=== PATIENT | female | born 2000 | race Caucasian/White ===

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

== ENCOUNTER 2020-01-22 16:33 | Emergency (ER) | payer OTHER, SELFPAY ==
[2020-01-22 16:42] VITALS: BP 110/72; PULSE 75; RESP 16; TEMP 37.1; O2SAT 99; BMI 23.8
[2020-01-22] MEDS: DEXAMETHASONE 10 MG/ML VIAL PO (18:01)
[2020-01-22 18:07] VITALS: BP 96/66; PULSE 73; RESP 18; O2SAT 18
--- NOTE | 2020-01-22 18:11 | ED.URI ---
HPI - URI/Sore Throat <DIGNA Rowley - Last Filed: 01/22/20 20:07> General Chief Complaint: Upper Respiratory Symptoms Stated Complaint: chills, sweats,sore throat, headache Time Seen by Provider: 01/22/20 17:17 Source: patient and family Mode of arrival: Ambulatory History of Present Illness HPI Narrative: 19yo female presents emergency department with her mother for a sore throat, headache, and sores in her throat for the past 3 days. Patient states she was around her sister who was recently treated for strep throat. Patient denies any other symptoms such as cough, shortness of breath, rhinorrhea, chest pain, dizziness, nausea, vomiting, diarrhea, or any other concerns. Related Data Home Medications Medication Instructions Recorded Confirmed cetirizine [Zyrtec] 10 mg PO DAILY 06/05/18 06/05/18 ibuprofen 1 dose PO PRN PRN 06/05/18 06/05/18 Previous Rx's Medication Instructions Recorded dextromethorphan-guaifenesin 1 tab PO BID PRN #20 tab 04/22/19 [Mucinex DM] fluticasone propionate [Flonase 1 spray NASAL BID PRN #15.8 ml 04/22/19 Allergy Relief] doxycycline hyclate 100 mg PO BID #20 tab 04/27/19 Allergies Allergy/AdvReac Type Severity Reaction Status Date / Time No Known Drug Allergies Allergy Verified 01/22/20 16:45 Review of Systems <DIGNA Rowley - Last Filed: 01/22/20 20:07> Review of Systems Narrative: REVIEW OF SYSTEMS: GENERAL: Denies fevers. HENT: No head trauma. Reports sore throat, see HPI. CARDIOVASCULAR: No chest pain or syncope. RESPIRATORY: No shortness of breath. No cough. GASTROINTESTINAL: No nausea, vomiting, diarrhea, or constipation. INTEGUMENTARY: No rash. Patient History <DIGNA Rowley - Last Filed: 01/22/20 20:07> Medical History Healthy child No pertinent family history Surgical History No pertinent past surgical history Social History Smoking Status: Never smoker Smoking Status: Never smoker Substance Use Type: does not use Exam <DIGNA Rowley - Last Filed: 01/22/20 20:07> Initial Vital Signs Initial Vital Signs: Vital Signs Temperature 98.8 F 01/22/20 16:42 Pulse Rate 75 01/22/20 16:42 Respiratory Rate 16 01/22/20 16:42 Blood Pressure 110/72 01/22/20 16:42 Pulse Oximetry 99 01/22/20 16:42 PHYSICAL EXAMINATION: GENERAL: Well groomed, alert, and cooperative. Answers questions promptly and appropriately. HENT: Normocephalic, atraumatic. Oropharynx with erythema, tonsils 1+ and equal bilaterally. Aphthous ulcers noted undo come mucosa. EYES: Conjunctiva pink, sclera white, no periorbital swelling. No discharge. RESPIRATORY: Normal respiratory rate, trachea midline, airway patent. No stridor, nasal flaring or accessory muscle use. MUSCULOSKELETAL: Normal gait and coordination. Equal tone and mass bilaterally. EXTREMITIES: Moves all extremities. SKIN: Warm, dry, soft, appropriate color for ethnicity. No lesions, rashes, or wounds to visualized areas. NEURO: Alert and Oriented X 3. Good coordination. No ataxia or cognitive issues. PSYCH: Appropriate affect and mood. <Jason Ramirez MD - Last Filed: 01/23/20 18:43> Initial Vital Signs Initial Vital Signs: Vital Signs Temperature 98.8 F 01/22/20 16:42 Pulse Rate 75 01/22/20 16:42 Respiratory Rate 16 01/22/20 16:42 Blood Pressure 110/72 01/22/20 16:42 Pulse Oximetry 99 01/22/20 16:42 Course <DIGNA Rowley - Last Filed: 01/22/20 20:07> Orders Ordered: Discontinued Medications Dexamethasone (Dexamethasone 10 Mg/Ml Vial) 10 mg PO NOW ONE Stop: 01/22/20 17:41 Last Admin: 01/22/20 18:01 Dose: 10 mg Documented by: FILOMENA Vital Signs Vital signs: Vital Signs - 8 hr 01/22/20 16:42 01/22/20 18:07 Temperature 98.8 F Pulse Rate 75 73 Respiratory Rate 16 18 Blood Pressure 110/72 96/66 Pulse Oximetry 99 18 L <Jason Ramirez MD - Last Filed: 01/23/20 18:43> Orders Ordered: Discontinued Medications Dexamethasone (Dexamethasone 10 Mg/Ml Vial) 10 mg PO NOW ONE Stop: 01/22/20 17:41 Last Admin: 01/22/20 18:01 Dose: 10 mg Documented by: FILOMENA Vital Signs Vital signs: Vital Signs - 8 hr 01/22/20 16:42 01/22/20 18:07 Temperature 98.8 F Pulse Rate 75 73 Respiratory Rate 16 18 Blood Pressure 110/72 96/66 Pulse Oximetry 99 18 L MDM - URI/Sore Throat <DIGNA Rowley - Last Filed: 01/22/20 20:07> Medical Records Attestation: I reviewed the patient's medical records. Lab Data Attestation: I reviewed the patient's lab results. Labs: Point of Care Testing Rapid Strep A Negative MDM Narrative Medical decision making narrative: History and examination concerning for pharyngitis. Increased suspicion for viral versus bacterial etiology given negative POC strep test. However, culture was sent to lab as patient was recently exposed to strep. She was given a dose of dexamethasone to help with throat pain and aphthous ulcers. She was encouraged to drink plenty of fluids and take ibuprofen as needed for pain. Return precautions given for new or worsening symptoms. Patient agreed to plan of care and verbalized understanding. <Jason Ramirez MD - Last Filed: 01/23/20 18:43> Lab Data Labs: Point of Care Testing Rapid Strep A Negative Discharge Plan Departure Patient Disposition: Home Clinical Impression: Aphthous ulcer Pharyngitis Qualifiers: Pharyngitis/tonsillitis etiology: unspecified etiology Qualified Code(s): J02.9 - Acute pharyngitis, unspecified Instructions: DI for Pharyngitis/Tonsillopharyngitis -- Adult Activity Restrictions/Additional Instructions: Thank you for entrusting me with your care today. As discussed, your strep A test is negative. We have sent a culture to the lab for further testing and will contact you if it is positive in approximately 2 days. I have given you a dose of dexamethasone to help with the pain and the canker sores, this lasts for approximately 3 days. Follow-up with your primary care provider in 1-2 weeks for further evaluation if symptoms continue. Return emergency department for any new or worsening symptoms. Prescriptions: No Action cetirizine [Zyrtec] 10 mg Tablet 10 mg PO DAILY RF: 0 ibuprofen 200 mg Tablet 1 dose PO PRN PRN (Reason: pain) RF: 0 doxycycline hyclate 100 mg tablet 100 mg PO BID Qty: 20 RF: 0 fluticasone propionate [Flonase Allergy Relief] 50 mcg/actuation spray,suspension 1 spray NASAL BID PRN (Reason: nasal congestion) Qty: 15.8 RF: 0 dextromethorphan-guaifenesin [Mucinex DM] 60-1,200 mg tablet extended release 12 hr 1 tab PO BID PRN (Reason: cold symptoms) Qty: 20 RF: 0
== END 2020-01-22 18:08 | disposition home or self-care (01) ==
PROVIDERS: Emergency Provider Nurse Practitioner
DX: K12.0 Recurrent oral aphthae (principal); J02.9 Acute pharyngitis, unspecified; R51.9 Headache, unspecified
CPT/HCPCS: 87070; 87880; 99281; 99283; J1100

== ENCOUNTER 2020-01-24 12:08 | Emergency (ER) | payer OTHER, SELFPAY ==
--- NOTE | 2020-01-24 12:12 | ED.URI ---
HPI - URI/Sore Throat <DIGNA Ansari - Last Filed: 01/24/20 13:57> General Chief Complaint: Fever Stated Complaint: cant eat/ no sleep/ possible yeast/ blisters in mo Time Seen by Provider: 01/24/20 12:11 Source: patient Mode of arrival: Ambulatory Limitations: no limitations History of Present Illness HPI Narrative: This is a 19-year-old female, smoker, who has past medical history significant for pneumonia presents to ED with chief complain of worsening sore throat and oral lesions in the inner lip, tongue and white patch on posterior throat with teeth sensitivity. Patient reports some chills but denies fever. Reports pain is pretty constant and rates as 8/10. Mother and patient reports decreased oral intake but has been able to tolerate liquids. Patient denies changes in her voice. Denies difficulty managing own oral secretions. Denies dyspnea, chest pain, abdominal pain, back pain. Patient also reports dysuria and burning sensation with urination. She denies lesions in perineum. She is sexually active but denies concerns for STIs and unusual vaginal discharge. LMP 1 week ago which was normal in character. She denies using IV drugs but smokes marijuana. Related Data Home Medications Medication Instructions Recorded Confirmed cetirizine [Zyrtec] 10 mg PO DAILY 06/05/18 06/05/18 ibuprofen 1 dose PO PRN PRN 06/05/18 06/05/18 Previous Rx's Medication Instructions Recorded dextromethorphan-guaifenesin 1 tab PO BID PRN #20 tab 04/22/19 [Mucinex DM] fluticasone propionate [Flonase 1 spray NASAL BID PRN #15.8 ml 04/22/19 Allergy Relief] doxycycline hyclate 100 mg PO BID #20 tab 04/27/19 cephalexin [Keflex] 500 mg PO BID 5 Days #10 cap 01/24/20 triamcinolone acetonide 1 applic MUCOUS MEMBRANE TID PRN 01/24/20 #5 g Allergies Allergy/AdvReac Type Severity Reaction Status Date / Time No Known Drug Allergies Allergy Verified 01/22/20 16:45 Review of Systems <DIGNA Ansari - Last Filed: 01/24/20 13:57> Review of Systems Narrative: General: Denies fever, (+) chills, fatigue, malaise, sweats. HEENT: See HPI Respiratory: Denies dyspnea, cough, wheezing, hemoptysis, sputum. Cardiovascular: Denies chest pain, palpitations, orthopnea, edema. Gastrointestinal: Denies nausea, vomiting, abdominal pain, diarrhea, constipation, melena. : See HPI Musculoskeletal: Denies weakness, joint pain or bony pain. Skin: Denies rash, skin lesions, or other. Neurologic: Denies weakness, headache, numbness, change in speech, confusion, seizures, incoordination. Psychiatric: No concerning psychosocial issues. 12-point review of systems is negative except for those stated above. Patient History <DIGNA Ansari - Last Filed: 01/24/20 13:57> Medical History (Updated 01/24/20 @ 13:27 by DIGNA Ansari) Healthy child No pertinent family history Surgical History No pertinent past surgical history Social History Smoking Status: Never smoker <Blessing Becerril MD - Last Filed: 01/24/20 18:01> Smoking Status: Never smoker Substance Use Type: does not use Exam <DIGNA Ansari - Last Filed: 01/24/20 13:57> Narrative Exam Narrative: GEN: Alert, oriented x 3, well appearing and nourished, and in no acute distress. Head: Normal cephalic, atraumatic. No scalp or temporal tenderness, palpable mass or rash. EYES: Pupils are equal, round, and reactive to light and accommodation. Extraocular muscles are intact bilaterally. There is no subconjunctival hemorrhage, exudate and sclera non-icteric. ENT: Bilateral auditory canals and tympanic membranes clear. Hearing grossly intact. Nose without bleeding, purulent discharge or deviation. Facial sinuses nontender to palpate. Mucous membrane moist a few small less than 0.5 cm mucosal lesions on the tip of tongue, inner frontal nuchal membrane. Throat mild erythema with mild tonsillar hypertrophy without obvious section date. Uvula in midline, airway patent. Neck: Trachea in midline. No JVD, non-tender without lymphadenopathy. No masses or thyroid megaly. Supple, non-tender and no meningeal signs. CARDIAC: Normal regular rate and rhythm without murmurs, gallops, or rubs. No chest wall tenderness. No peripheral edema, cyanosis or pallor. Capillary refill is less than 2 seconds. RESPIRATORY: Lungs are clear to auscultate bilaterally. No cough, wheezes, rales, or rhonchi. No stridor, respiratory distress, increase work of breathing, or accessary muscle used. ABD: Abdomen soft, nontender and non-distended. No guarding or rebound tenderness to palpate. Bowel sounds are normal in all 4 quadrants. There is no palpable masses or organomegaly. EXT: Full painless ROM of all extremities with no loss of sensation, strength, effusion or edema. SKIN: Warm, dry, normal color for patient. No erythema, lesions or rash over visible areas. BACK: Nontender without deformity or crepitance. No flank tenderness. NEUROLOGICAL: Alert and oriented to place, time and person. Sensation and motor function intact bilaterally. No facial droops, dysphasia. PSYCHIATRIC: Good judgement and reason, without hallucinations, abnormal affect or abnormal behaviors during the examination. Patient is not suicidal. Initial Vital Signs Initial Vital Signs: Vital Signs Temperature 99 F 01/24/20 12:16 Pulse Rate 93 H 01/24/20 12:16 Respiratory Rate 18 01/24/20 12:16 Blood Pressure 113/70 01/24/20 12:16 Pulse Oximetry 96 01/24/20 12:16 General: No CVA tenderness External Female Exam: normal appearance of the urethra, externally tender on the left (Labia majora), no external swelling, lesion (two small ulcerated lesion), no lacerations, no ecchymosis, No urethral discharge and No bartholin cyst Speculum Exam - Vagina: normal appearance of the vagina, abnormal vaginal discharge white, not erythematous, no lesions, No vaginal bleeding, no masses and nontender Speculum Exam - Cervix: normal appearance of the cervix Bimanual Exam- Vagina & Uterus: normal bimanual exam Bimanual Exam- Adnexa, other: no masses OB/External & Speculum: No vaginal bleeding Other: Patient requested have mother at bedside and decline additional stand by assistance/regulatory manager. Vaginal cultures obtained <Belssing Becerril MD - Last Filed: 01/24/20 18:01> Initial Vital Signs Initial Vital Signs: Vital Signs Temperature 99 F 01/24/20 12:16 Pulse Rate 93 H 01/24/20 12:16 Respiratory Rate 18 01/24/20 12:16 Blood Pressure 113/70 01/24/20 12:16 Pulse Oximetry 96 01/24/20 12:16 Scores <[facility] - Last Filed: 01/24/20 13:57> GCS Dominique coma scale eye opening: Spontaneous [place] coma scale verbal response: Orientated [place] coma scale motor response: Obey commands Dominique coma scale total score: 15 Course <[facility] - Last Filed: 01/24/20 13:57> Orders Ordered: ED Orders 01/24/20 12:35 Miscellaneous to [facility] Stat Urine Culture Stat Urine Microscopic Stat 01/24/20 13:00 Genital Culture Stat HSV Culture Typing Stat Wet Prep Tric BV Becky Stat Vital Signs Vital signs: Vital Signs - 8 hr 01/24/20 12:16 01/24/20 13:32 Temperature 99 F Pulse Rate 93 H 78 Respiratory Rate 18 14 Blood Pressure 113/70 111/72 Pulse Oximetry 96 98 <Blessing Becerril MD - Last Filed: 01/24/20 18:01> Orders Ordered: ED Orders 01/24/20 12:35 Miscellaneous to [facility] Stat Urine Culture Stat Urine Microscopic Stat 01/24/20 13:00 Genital Culture Stat HSV Culture Typing Stat Wet Prep Tric BV Becky Stat Vital Signs Vital signs: Vital Signs - 8 hr 01/24/20 12:16 01/24/20 13:32 Temperature 99 F Pulse Rate 93 H 78 Respiratory Rate 18 14 Blood Pressure 113/70 111/72 Pulse Oximetry 96 98 MDM - URI/Sore Throat <[facility] - Last Filed: 01/24/20 13:57> Differential Diagnosis Differential diagnosis: Likely pharyngitis and other (Aphthous ulcers, vaginal ulcers, UTI, PID, vaginal infection/STI) Medical Records Attestation: I reviewed the patient's medical records. Lab Data Attestation: I reviewed the patient's lab results. Labs: Lab Results 01/24/20 Range/Units 12:35 Urine RBC 1-5/hpf (0-5/HPF) Urine WBC 10-30/hpf H (0-5/HPF) Ur Squamous Epith Cells 1-5 /hpf (0-5/HPF) Urine Bacteria Moderate (10-30) H (None) Ur Culture Indicated? Specimen cultured Point of Care Testing Test Results Negative Urine Dip Bedside Urine Glucose Negative Bedside Urine Bilirubin - Negative Bedside Urine Ketone + 15 Urine Specific [place] 1.020 Bedside Urine Occult Blood - Negative Bedside Urine pH 6 Bedside Urine Protein - Negative Bedside Urine Urobilinogen - Negative Bedside Urine Leukocytes +/- 15 Esterase MDM Narrative Medical decision making narrative: Throat culture result reviewed from 01/22/20-Moderate growth of mixed resident danyel. Patient return to ED after 2 days with chief complain of worsening discomfort in throat and from oral lesions with dysuria. Patient is able to manage her own secretions. No difficulty with breathing, intact airway, no muffled voice and she does not appear to be toxic or septic. Afebrile with within normal limits of blood pressure and heart rate. Appreicated a few of small oral lesions and noted a couple of small lesions in left side of labia majora. Copid amount of white vaginal discharge as well. Genital cultures for HSV, GC/Chlamydis, wet prep, genital culture which are pending. UA is positive for leuks, and micro urine result is positive for bacteria and urine WBC. Patient is being treated for UTI with Keflex 500 mg b.i.d. dose for 5 days. Discharged to home with Kenalog oral base ointment for comfort. Return precautions were discussed with patient and advised adequate oral hydration and to use Tylenol as needed for discomfort. Patient and mother verbalized understanding and agreement with the treatment plan. <Blessing Becerril MD - Last Filed: 01/24/20 18:01> Lab Data Labs: Lab Results 01/24/20 Range/Units 12:35 Urine RBC 1-5/hpf (0-5/HPF) Urine WBC 10-30/hpf H (0-5/HPF) Ur Squamous Epith Cells 1-5 /hpf (0-5/HPF) Urine Bacteria Moderate (10-30) H (None) Ur Culture Indicated? Specimen cultured Point of Care Testing Test Results Negative Urine Dip Bedside Urine Glucose Negative Bedside Urine Bilirubin - Negative Bedside Urine Ketone + 15 Urine Specific [place] 1.020 Bedside Urine Occult Blood - Negative Bedside Urine pH 6 Bedside Urine Protein - Negative Bedside Urine Urobilinogen - Negative Bedside Urine Leukocytes +/- 15 Esterase Discharge Plan Departure Patient Disposition: Home Clinical Impression: Aphthous ulcer, Vaginal lesion UTI (urinary tract infection) Qualifiers: Urinary tract infection type: site unspecified Hematuria presence: without hematuria Qualified Code(s): N39.0 - Urinary tract infection, site not specified Instructions: DI for Urinary Tract Infection (UTI), DI for Aphthous Ulcers (Canker Sores) Activity Restrictions/Additional Instructions: You have been diagnosed with [oral lesions, UTI, pharyngitis. Please start antibiotic medication Keflex twice a day for next 5 days. Use Kenalog oral base ointment 3 to 4 times a day as needed in oral mucous membrane and not more than twice in genital region as needed for pain. You will receive a phone call from us if you require treatment from today's cultures or changes in antibiotic medication per urine culture]. What to do: *Take your medications as directed. You can continue to take Tylenol as needed for discomfort and hydrate well. These to medication have been transmitted to [facility] in [place]. *Follow up with your primary care provider in 2-3 days, call for an appointment. Let them know you were seen in the ED and that we asked you to be seen in follow up. *Return to ED if you have any new, worsening, or concerning symptoms, such as [fever, worsening pain, difficulty breathing, chest pain, unable to tolerate fluids, or any acute concerns]. Prescriptions: New cephalexin [Keflex] 500 mg capsule 500 mg PO BID 5 Days Qty: 10 RF: 0 triamcinolone acetonide 0.1 % paste 1 applic mucous membrane TID PRN (Reason: mouth irritation) Qty: 5 RF: 0 No Action cetirizine [Zyrtec] 10 mg Tablet 10 mg PO DAILY RF: 0 ibuprofen 200 mg Tablet 1 dose PO PRN PRN (Reason: pain) RF: 0 doxycycline hyclate 100 mg tablet 100 mg PO BID Qty: 20 RF: 0 fluticasone propionate [Flonase Allergy Relief] 50 mcg/actuation spray,suspension 1 spray NASAL BID PRN (Reason: nasal congestion) Qty: 15.8 RF: 0 dextromethorphan-guaifenesin [Mucinex DM] 60-1,200 mg tablet extended release 12 hr 1 tab PO BID PRN (Reason: cold symptoms) Qty: 20 RF: 0 Referrals: [facility] [Outside] <Blessing Becerril MD - Last Filed: 01/24/20 18:01> Cosign ED Attending Cosignature Attestation: I was immediately available in the department for consultation throughout this patient's visit. I agree with documentation as above. Blessing Becerril MD
[2020-01-24 12:16] VITALS: BP 113/70; PULSE 93; RESP 18; TEMP 37.2; O2SAT 96; BMI 23.8
[2020-01-24 12:55] LABS: Bacteria Urine Moderate (10-30); Culture Indicated Urine Specimen Cultured; RBC Urine 1-5/HPF (0-5/HPF); Squamous Epithelial Cell Urine 1-5 /HPF (0-5/HPF); WBC Urine 10-30/HPF (0-5/HPF)
[2020-01-24 13:32] VITALS: BP 111/72; PULSE 78; RESP 14; O2SAT 98
== END 2020-01-24 13:45 | disposition home or self-care (01) ==
PROVIDERS: Emergency Provider Nurse Practitioner Family
DX: K12.0 Recurrent oral aphthae (principal); N39.0 Urinary tract infection, site not specified; N89.8 Other specified noninflammatory disorders of vagina; R30.0 Dysuria
CPT/HCPCS: 81003; 81015; 81025; 87070; 87077; 87086; 87147; 87205; 87210; 87255; 87491; 87591; 99281; 99282